=== PATIENT | male | born 1955 | race Caucasian/White ===

== ENCOUNTER → 2018-07-05 | Outpatient (CLI) | payer BC ==
--- NOTE | 2018-07-05 18:13 | CONS ---
Date/Time of Note Date/Time of Note DATE: 07/05/18 TIME: 18:04 Assessment/Plan Assessment/Plan Hospital Course This is a 62-year-old male with end-stage arthritis of the right hip. He has significant symptoms that have been ongoing for approximately a year. The symptoms and physical examination and radiographs are consistent with osteoarthritis of the right hip. Overall he is a very good surgical candidate as he is failed nonoperative treatment. However there are several things that need to be optimized prior to scheduling surgery. Currently his BMI is greater than 41.2. I explained to the patient that this puts him at increased perioperative risk for complications especially infection. He understood this. I think is very achievable to get his BMI below 40 which would only be a 10 pound loss. Any additional weight loss would of course further decrease his risks. He also states he is borderline diabetic and takes metformin 500 mg twice daily. I like to see a HgbA1c at his next visit. Plan: Weight loss activity modification Recommended cane for gait aid Continue anti-inflammatories Follow-up in a couple months or when his BMI is less than 40 and with the hemoglobin A1c results. At that time if everything is appropriate we will schedule surgery. Consultation Date/Type/Reason Admit Date/Time Date of Consultation: Jul 05, 2018 Reason for Consultation Right hip pain Hx of Present Illness This is a 62-year-old male who presents with a history of right hip pain. Patient states the pain is in the groin. The pain is primarily weight bearing and does not radiate. It is described as a dull ache. The pain is rated as a 89/10 with activity and 4/10 at rest. Walking tolerance is limited. No external support. The patient does admit to a limp. Navigates stairs with use of the banister. Has difficulty with shoes and socks. No history of childhood or adolescent hip disease. No risk factors for avascular necrosis. There are no symptoms to suggest referred pain from the back with radicular symptoms. Treatment to date has included oral anti-inflammatories, activity modification. The patient states that treatment to date has not provided adequate relief of symptoms, prompting consultation regarding operative and nonoperative treatment for right hip pain. Of note he had his left total hip done by Dr. Lazo 2006 this was an ASR. He also had his left total knee done by Dr. Lazo around 2006 as well. Patient denies any issues with his left hip or knee. Duration: One year Injury: No Walking tolerance: Very limited Limp: Yes Support: No Stairs: Difficult Physical Therapy: No Injections: No NSAID's: naproxen Prior surgery: Left total hip and total knee Back pain: No Knee pain: No Risk of AVN : No Patient denies fever, chills, shortness of breath, chest pain, nausea/vomiting, constipation, diarrhea, numbness, and tingling. Past Medical History Borderline diabetes Stroke8 years ago Arthritis Allergies: Coded Allergies: No Known Drug Allergy (Verified Allergy, Unknown, 01/08/07) Past Surgical History Left total hip arthroplasty ASRDrJohn Lazo 2006 Right total knee arthroplastyDrJohn Lazo 2006 Family History Significant Family History: no pertinent family hx Social History Alcohol Use: rarely Smoking Status: Never smoker Drug Use: none Exam/Review of Systems Vital Signs Vitals Weight: 255 pounds Height: 5 foot 6 inches BMI: 41.2 Temperature: 97.9 Heart Rate: 59 Blood Pressure: 161/87 Respiratory Rate: 14 Exam General: Awake, alert, in no acute distress, pleasant and cooperative Heart: regular rhythm Lungs: breathing comfortably, no tachypnea or dyspnea Musculoskeletal: Well developed obese male in no apparent distress. Gait demonstrates a significant Trendelenburg with antalgic components and short leg component. Standing, the pelvis is level and supine there is a true leg length discrepancy, with the right leg 0.5 cm short. No tenderness over trochanteric bursa or IT band. ----- Range of motion: Flexion: 80 Extension: 0 Internal rotation: 0 External rotation: 30 Abduction: 45 Adduction: 0 ----- Sitting there is no pelvic obliquity. Pain at the extremes of motion of the aff ected hip. Skin was intact throughout both lower extremities. Sensation intact to light touch in a sural, saphenous, deep peroneal, superficial peroneal, medial and lateral plantar nerve distribution. Neurovascular exam showed 5/5 strength in the abductors, quads, EHL/tibialis anterior/gastroc. Normal and symmetrical pulses were palpated in both the dorsalis pedis and posterior tibial arteries. There is no sign of venous stasis. Imaging Imaging The patient received a full set of films and personally reviewed by myself today in clinic including an AP pelvis and an AP and lateral of the affected hip. The hip is reduced. There is complete loss of joint space. There is osteophyte formation. There is subchondral sclerosis. There are subchondral cysts. There is no significant deformity of the the proximal femur, femoral neck, or acetabulum. The pelvis is in continuity. Bone quality radiographically: RADHA Krishnan MD Jul 05, 2018 18:13
--- NOTE | 2018-07-06 09:21 | RADRPT ---
PROCEDURE: XR hip and pelvis CLINICAL INDICATION: Hip pain. TECHNIQUE: Two weightbearing views of the right hip including pelvis are available for review. COMPARISON: None. FINDINGS: There is no acute fracture or dislocation. There are severe osteoarthritic changes of the right hip j oint with joint space narrowing and subchondral sclerosis. There is lateral subluxation of the right femoral head in relation with the acetabulum. Left hip prosthesis is partially seen and unremarkable. IMPRESSION: 1. Severe right hip joint osteoarthritis with lateral subluxation of the femoral head. RPTAT:AAEE Physician Veronique Date Time Electronically viewed and signed by Physician Veronique on 07/06/2018 09:21 /
== END | disposition home or self-care (01) ==
LOC: HKI 16:17
PROVIDERS: ATTEND Orthopaedic Surgery Adult Reconstructive Orthopaedic Surgery
DX: M16.11 Unilateral primary osteoarthritis, right hip (principal)
CPT/HCPCS: 73502; G0463

== ENCOUNTER → 2018-08-02 | Outpatient (CLI) | payer BC ==
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
--- NOTE | 2018-08-03 11:30 | RADRPT ---
PROCEDURE: XR knees CLINICAL INDICATION: Knee pain TECHNIQUE: Four views of the bilateral knees were obtained. COMPARISON: Left knee radiograph dated 03/14/2007 FINDINGS: There are stable postsurgical changes of total left knee arthroplasty. The hardware is intact and wel l aligned. No periprosthetic fracture is identified. The bone mineralization is decreased. There is n o left joint effusion. There are mild to moderate medial and patellofemoral compartment degenerative changes of the right kn ee. The bone mineralization is decreased on the right. There is no right joint effusion. Vascular harper cifications are seen in the lower extremities. IMPRESSION: 1. Stable postsurgical changes of total left knee arthroplasty. 2. Mild to moderate medial and patellofemoral compartment degenerative changes of the right knee. 3. Osseous demineralization. 4. No joint effusion. RPTAT: AAEE Physician Cristino Date Time Electronically viewed and signed by Quinn Vaz Physician on 08/03/2018 11:30 RF/
== END | disposition home or self-care (01) ==
LOC: HKI 13:35
PROVIDERS: ATTEND Orthopaedic Surgery Adult Reconstructive Orthopaedic Surgery
DX: M16.11 Unilateral primary osteoarthritis, right hip (principal)
CPT/HCPCS: 73564; G0463

== ENCOUNTER → 2018-10-05 | Outpatient (CLI) | payer BC ==
--- NOTE | 2018-10-05 15:12 | CONS ---
Consult Date/Type/Reason Admit Date/Time Initial Consult Date Date/Time of Note DATE: 10/05/18 TIME: 15:04 Subjective 63-year-old male following up today for right hip pain, back pain and lumbar radiculopathy. Of note his father yesterday from end-stage Alzheimer's. He was originally seen back in June for right hip osteoarthritis. At that time it was discussed with him that he is a good cordero rgical candidate except he needs to lose weight before his BMI to be less than 40 and needs to have his hemoglobin A1c faxed over to us for review. Patient states that he has been doing therapy for his lumbar radiculopathy. Has had some relief. He continues to have severe pain going down his leg past his knee to his ankle. He does continue to have groin pain from his hip osteoarthritis. Patient states he has not lost any weight since last visit. Denies any new symptoms in regards to his right hip. Objective Vitals Weight: 255 pounds Height: 5 foot 6 inches BMI: 41.2 Heart Rate: 67 Blood Pressure: 190/100 Exam General: Awake, alert, in no acute distress, pleasant and cooperative Heart: regular rhythm Lungs: breathing comfortably, no tachypnea or dyspnea Musculoskeletal: Well developed obese male in no apparent distress. Gait demonstrates a significant Trendelenburg with antalgic components and short leg component. Standing, the pelvis is level and supine there is a true leg length discrepancy, with the right leg 0.5 cm short. No tenderness over trochanteric bursa or IT band. ----- Range of motion: Flexion: 80 Extension: 0 Internal rotation: 0 External rotation: 30 Abduction: 45 Adduction: 0 ----- Sitting there is no pelvic obliquity. Pain at the extremes of motion of the affected hip. Skin was intact throughout both lower extremities. Sensation intact to light touch in a sural, saphenous, deep peroneal, superficial peroneal, medial and lateral p lantar nerve distribution. Neurovascular exam showed 5/5 strength in the abductors, quads, EHL/tibialis anterior/gastroc. Normal and symmetrical pulses were palpated in both the dorsalis pedis and posterior tibial arteries. There is no sign of venous stasis. Assessment/Plan Hospital Course (Demo Recall) This is a 62-year-old male with known end-stage osteoarthritis of the right hip. His knee pain is related to his arthritic hip as this is all referred pain. His ankle is also normal on examination. His symptoms and examination are consistent with lumbar radiculopathy. At this time I offered the patient to continue physical therapy as well as referral for evaluation and treatment with epidural spinal injections. At this time he declined a referral for injections. He would like to continue physical therapy. I encouraged the patient to continue to try to lose weight as this will help his lumbar spine as well as his hip. If his BMI is below 40 and hemoglobin A1c is 7 or below we can proceed with right total hip arthroplasty. Plan: Physical therapy for lumbar radiculopathy Follow-up in approximately 3 months with a new hemoglobin A1c as well as continued weight loss so his BMI can be less than 40 for planning his right tot al hip arthroplasty. RADHA SHETTY MD Oct 05, 2018 15:12
== END | disposition home or self-care (01) ==
LOC: HKI 14:41
PROVIDERS: ATTEND Orthopaedic Surgery Adult Reconstructive Orthopaedic Surgery
DX: M16.11 Unilateral primary osteoarthritis, right hip (principal); M54.16 Radiculopathy, lumbar region; M54.9 Dorsalgia, unspecified; M25.551 Pain in right hip
CPT/HCPCS: G0463

== ENCOUNTER 2019-02-26 07:30 | Inpatient (IN) | payer BC ==
[2019-02-20 15:39] VITALS: BMI 43.4
[~2019-02-26] VITALS: Ht 167.6 cm; Wt 121.0 kg
[2019-02-26] VITALS (27 sets, daily range): BP systolic 91–144; BP diastolic 51–83; PULSE 60–78; RESP 12–22; Ht 167.6 cm; Wt 121.0 kg
[~2019-02-26 07:30] MED LIST: ACETAMINOPHEN 1000MG/100ML IV 100 ML IVPB SCH; AMLO-147 PO; ASPI-1163 PO; DOCU-144 PO; ENAL20TA PO; GABA300C16 PO; LEVO75TA65 PO; METF500T24 PO; METO-429 PO; MEVA40 PO; OXYC15TA PO; PARO10TA57 PO; SENOKOTS PO; TAMS-14 PO
[2019-02-26] MEDS ORDERED: TRANEXAMIC ACID 1GM/100ML(PMX) 100 ML PRE-OP IVPB ONE (08:30)
[2019-02-26] MEDS ORDERED: CEFAZOLIN 2 GM/50 ML (PMX) 50 ML IVPB ONE (08:30)
[2019-02-26] MEDS ORDERED: LACTATED RINGER'S 1,000 ML IV SCH (08:30)
[2019-02-26] MEDS ORDERED: TRANEXAMIC ACID 1GM/100ML(PMX) 100 ML AT CLOSING IVPB ONE (08:30)
[2019-02-26] MEDS ORDERED: GABAPENTIN 300 MG CAP PO SCH (08:30)
[2019-02-26] MEDS ORDERED: ONDANSETRON 4 MG INJ IV ONE (08:30)
[2019-02-26] MEDS ORDERED: CELECOXIB 200 MG CAP PO ONE (08:30)
[2019-02-26] MEDS ORDERED: LANSOPRAZOLE 30 MG CAP PO ONE (08:30)
[2019-02-26] MEDS ORDERED: TOBRAMYCIN 1.2 GM POWDER ONE (09:20)
[2019-02-26] MEDS ORDERED: VANCOMYCIN 1 GM INJ ONE ×2 (09:20→11:18)
[2019-02-26] MEDS ORDERED: LIDOCAINE 1% (MDV) 20 ML INJ ONE (09:26)
[2019-02-26] MEDS ORDERED: PROPOFOL 20 ML ONE (09:26)
[2019-02-26] MEDS ORDERED: DESFLURANE 15 MIN ONE (09:26)
[2019-02-26] MEDS ORDERED: MIDAZOLAM 1 MG/ML 2 ML INJ ONE (09:26)
[2019-02-26] MEDS ORDERED: ROCURONIUM 50 MG INJ ONE (09:26)
[2019-02-26] MEDS: TRANEXAMIC ACID 1GM/100ML(PMX) 100 ML ONE (11:32)
[2019-02-26] MEDS ORDERED: TRANEXAMIC ACID 1GM/100ML(PMX) 100 ML ONE (14:42)
[2019-02-26] MEDS ORDERED: CEFAZOLIN 1 GM INJ ONE (14:43)
[2019-02-26] MEDS ORDERED: ROPIVACAINE 0.5 % 30 ML VIAL ONE (15:04)
[2019-02-26] MEDS ORDERED: ROPIVACAINE 0.2% 20 ML VIAL ONE (15:38)
[2019-02-26] MEDS ORDERED: SUGAMMADEX SODIUM 200 MG/2 ML VIAL IV ONE (15:47)
[2019-02-26] MEDS ORDERED: BETHANECHOL 25 MG TAB PO PRN (16:00)
[2019-02-26] MEDS ORDERED: NA PHOSPHATE/BIPHOS 133 ML ENEMA PR PRN (16:00)
[2019-02-26] MEDS ORDERED: DOCUSATE SODIUM 100 MG CAP PO ONE (16:00)
[2019-02-26] MEDS ORDERED: MAGNESIUM HYDROXIDE 30ML CUP PO PRN (16:00)
[2019-02-26] MEDS ORDERED: NACL 0.9% 3 ML SYG IV SCH (16:00)
[2019-02-26] MEDS ORDERED: DIPHENHYDRAMINE 50 MG INJ IV PRN (16:00)
[2019-02-26] MEDS ORDERED: oxyCODONE 5 MG TAB PO PRN (16:00)
[2019-02-26] MEDS ORDERED: NALOXONE (0.4 MG/ML) INJ IV PRN (16:00)
[2019-02-26] MEDS ORDERED: BISACODYL 10 MG SUPP PR PRN (16:00)
[2019-02-26] MEDS ORDERED: HYDROmorphONE 1 MG/5 ML IV SYRINGE IV ONE (16:21)
[2019-02-26] MEDS ORDERED: DEXTROSE 50% 50 ML SYRINGE IV PRN ×2 (16:30)
[2019-02-26] MEDS ORDERED: GLUCOSE GEL 15 GRAM TUBE BUCCAL PRN (16:30)
[2019-02-26] MEDS ORDERED: GLUCOSE GEL 15 GRAM TUBE PO PRN ×2 (16:30)
[2019-02-26] MEDS ORDERED: GLUCAGON 1 MG INJ IM PRN (16:30)
[2019-02-26] MEDS ORDERED: HYDROmorphONE 1 MG/5 ML IV SYRINGE IV PRN ×2 (16:30)
[2019-02-26] MEDS: HYDROmorphONE 1 MG/5 ML IV SYRINGE IV PRN ×2 (16:33→18:04)
[2019-02-26] MEDS: LACTATED RINGER'S 1,000 ML IV SCH (16:33)
[2019-02-26] MEDS: HYDROmorphONE 1 MG/ML SYG IV PRN (16:42)
[2019-02-26] MEDS: CEFAZOLIN 2 GM/50 ML (PMX) 50 ML IVPB SCH ×2 (17:06→23:20)
[2019-02-26] MEDS: INSULIN ASPART [NOVOLOG] 3 ML PEN SC SCH ×2 (18:00→21:00)
[2019-02-26] MEDS: metFORMIN 500 MG TAB PO SCH (18:00)
[2019-02-26] MEDS: ATORVASTATIN 20 MG TAB PO SCH (21:03)
[2019-02-26] MEDS: GABAPENTIN 300 MG CAP PO SCH (21:04)
[2019-02-26] MEDS: TAMSULOSIN (SR) 0.4 MG CAP PO SCH (21:04)
[2019-02-26] MEDS: ACETAMINOPHEN 500 MG TAB PO SCH (22:14)
[2019-02-27] VITALS: BP 131/59; PULSE 59; RESP 18
[2019-02-27] MEDS: ACCU-CHEK XX SCH (01:20)
[2019-02-27] MEDS: LACTATED RINGER'S 1,000 ML IV SCH ×2 (04:19→04:46)
[2019-02-27] MEDS: PANTOPRAZOLE (EC) 40 MG TAB PO SCH (05:12)
[2019-02-27] MEDS: KETOROLAC 15 MG INJ IV PRN ×2 (05:12→20:57)
[2019-02-27 05:21] VITALS: BP 145/65; PULSE 66; RESP 17
[2019-02-27] MEDS: ACETAMINOPHEN 500 MG TAB PO SCH ×3 (06:07→20:59)
[2019-02-27] MEDS: LEVOTHYROXINE 75 MCG TAB PO SCH (06:07)
[2019-02-27 07:14] VITALS: BP 125/59; PULSE 74; RESP 18
[2019-02-27] MEDS: TAMSULOSIN (SR) 0.4 MG CAP PO SCH ×2 (08:41→20:57)
[2019-02-27] MEDS: oxyCODONE 5 MG TAB PO PRN ×4 (08:41→22:01)
[2019-02-27] MEDS: metFORMIN 500 MG TAB PO SCH ×2 (08:42→17:59)
[2019-02-27] MEDS: INSULIN ASPART [NOVOLOG] 3 ML PEN SC SCH ×4 (08:43→21:00)
[2019-02-27] MEDS: PAROXETINE 10 MG TAB PO SCH (08:44)
[2019-02-27] MEDS: DOCUSATE SODIUM 100 MG CAP PO SCH ×2 (08:45→20:58)
[2019-02-27] MEDS: ASPIRIN (EC) 81 MG TAB PO SCH ×2 (08:45→20:57)
[2019-02-27] MEDS: CEFAZOLIN 2 GM/50 ML (PMX) 50 ML IVPB SCH (08:45)
[2019-02-27] MEDS: HYDROmorphONE 1 MG/ML SYG IV PRN ×4 (10:59→23:36)
[2019-02-27] MEDS ORDERED: MAGNESIUM OXIDE 400 MG TAB PO ONE (14:00)
[2019-02-27 14:35] VITALS: BP 151/70; PULSE 99; RESP 18
[2019-02-27] MEDS ORDERED: ONDANSETRON 4 MG INJ IV PRN (16:00)
[2019-02-27 19:05] VITALS: BP 171/81; PULSE 85; RESP 18
[2019-02-27] MEDS: ATORVASTATIN 20 MG TAB PO SCH (20:58)
[2019-02-27] MEDS: METOPROLOL 50 MG TAB PO SCH (20:58)
[2019-02-27] MEDS: GABAPENTIN 300 MG CAP PO SCH (20:58)
[2019-02-28] VITALS: BP 133/69; PULSE 64; RESP 17
[2019-02-28] MEDS: ACCU-CHEK XX SCH (01:23)
[2019-02-28] MEDS: LACTATED RINGER'S 1,000 ML IV SCH (01:26)
[2019-02-28] MEDS: oxyCODONE 5 MG TAB PO PRN ×5 (03:00→21:14)
[2019-02-28] MEDS: PANTOPRAZOLE (EC) 40 MG TAB PO SCH (05:32)
[2019-02-28] MEDS: ACETAMINOPHEN 500 MG TAB PO SCH ×3 (05:32→21:15)
[2019-02-28] MEDS: HYDROmorphONE 1 MG/ML SYG IV PRN ×4 (05:32→19:29)
[2019-02-28] MEDS: LEVOTHYROXINE 75 MCG TAB PO SCH (05:32)
[2019-02-28] MEDS: SENNA/DOCUSATE NA (8.6MG/50MG) TAB PO PRN (05:32)
[2019-02-28 07:42] VITALS: BP 145/68; PULSE 73; RESP 20
[2019-02-28] MEDS: INSULIN ASPART [NOVOLOG] 3 ML PEN SC SCH ×4 (07:50→21:00)
[2019-02-28] MEDS: PAROXETINE 10 MG TAB PO SCH (08:36)
[2019-02-28] MEDS: DOCUSATE SODIUM 100 MG CAP PO SCH ×2 (08:36→19:51)
[2019-02-28] MEDS: ASPIRIN (EC) 81 MG TAB PO SCH ×2 (08:37→19:51)
[2019-02-28] MEDS: TAMSULOSIN (SR) 0.4 MG CAP PO SCH ×2 (08:37→19:52)
[2019-02-28] MEDS: AMLODIPINE 10 MG TAB PO SCH (08:37)
[2019-02-28] MEDS: metFORMIN 500 MG TAB PO SCH ×2 (08:37→19:50)
[2019-02-28] MEDS: METOPROLOL 50 MG TAB PO SCH ×2 (08:38→21:16)
[2019-02-28] MEDS ORDERED: SOD CHLORIDE 0.9% 1,000 ML IV ONE (09:30)
[2019-02-28] MEDS: GABAPENTIN 300 MG CAP PO SCH (19:51)
[2019-02-28] MEDS: ATORVASTATIN 20 MG TAB PO SCH (19:51)
[2019-02-28 20:07] VITALS: BP 144/62; PULSE 71; RESP 18
[2019-03-01] MEDS: ACCU-CHEK XX SCH (02:00)
[2019-03-01 02:07] VITALS: BP 135/62; PULSE 74; RESP 20
[2019-03-01] MEDS: oxyCODONE 5 MG TAB PO PRN ×2 (05:35→13:07)
[2019-03-01] MEDS: ACETAMINOPHEN 500 MG TAB PO SCH ×2 (05:36→14:37)
[2019-03-01] MEDS: PANTOPRAZOLE (EC) 40 MG TAB PO SCH (05:36)
[2019-03-01] MEDS: LEVOTHYROXINE 75 MCG TAB PO SCH (07:02)
[2019-03-01] MEDS: HYDROmorphONE 1 MG/ML SYG IV PRN ×3 (07:03→20:28)
[2019-03-01 08:13] VITALS: BP 138/67; PULSE 71; RESP 18
[2019-03-01] MEDS: PAROXETINE 10 MG TAB PO SCH (08:35)
[2019-03-01] MEDS: DOCUSATE SODIUM 100 MG CAP PO SCH ×2 (08:35→20:24)
[2019-03-01] MEDS: TAMSULOSIN (SR) 0.4 MG CAP PO SCH ×2 (08:35→20:23)
[2019-03-01] MEDS: ASPIRIN (EC) 81 MG TAB PO SCH ×2 (08:36→20:23)
[2019-03-01] MEDS: METOPROLOL 50 MG TAB PO SCH ×2 (08:48→20:25)
[2019-03-01] MEDS: AMLODIPINE 10 MG TAB PO SCH (08:48)
[2019-03-01] MEDS: INSULIN ASPART [NOVOLOG] 3 ML PEN SC SCH ×4 (08:53→20:26)
[2019-03-01] MEDS: SENNA/DOCUSATE NA (8.6MG/50MG) TAB PO PRN (08:53)
[2019-03-01] MEDS: metFORMIN 500 MG TAB PO SCH ×2 (08:53→17:54)
[2019-03-01] MEDS ORDERED: oxyCODONE 15 MG TAB PO PRN (15:00)
[2019-03-01 15:02] VITALS: BP 137/66; PULSE 79; RESP 20
[2019-03-01 20:10] VITALS: BP 118/70; PULSE 77; RESP 17
[2019-03-01] MEDS: GABAPENTIN 300 MG CAP PO SCH (20:22)
[2019-03-01] MEDS: ATORVASTATIN 20 MG TAB PO SCH (20:23)
== END 2019-03-01 22:10 | DRG 470 ==
LOC: REC 08:00 → MS1 18:11
PROVIDERS: ADMIT Orthopaedic Surgery Adult Reconstructive Orthopaedic Surgery; ATTEND Orthopaedic Surgery Adult Reconstructive Orthopaedic Surgery
PROC: 0SR904Z Replacement of Right Hip Joint with Ceramic on Polyethylene Synthetic Substitute, Open Approach (ICD-10-PCS; principal; 2019-02-26 09:00)
DX: M16.11 Unilateral primary osteoarthritis, right hip (principal); N17.9 Acute kidney failure, unspecified; Z68.41 Body mass index [BMI] 40.0-44.9, adult; E66.01 Morbid (severe) obesity due to excess calories; N40.0 Benign prostatic hyperplasia without lower urinary tract symptoms; E03.9 Hypothyroidism, unspecified; D64.9 Anemia, unspecified; E78.5 Hyperlipidemia, unspecified; I12.9 Hypertensive chronic kidney disease with stage 1 through stage 4 chronic kidney disease, or unspecified chronic kidney disease; E11.22 Type 2 diabetes mellitus with diabetic chronic kidney disease; N18.3 Chronic kidney disease, stage 3 (moderate); Z86.73 Personal history of transient ischemic attack (TIA), and cerebral infarction without residual deficits
CPT/HCPCS: 72170; 73500; 73530; 80048; 81001; 82962; 83036; 83735; 85025; 85610; 86850; 86900; 86901; 87081; 87086; 88304; 88311; 97110; 97116; 97161; 97165; 97530; 97535; C1713; C1776; J0131; J0171; J0690; J0735; J1170; J1815; J1885; J2250; J2405; J2795; J3010; J3370; J7030; J7120